=== PATIENT | female | born 1985 | race Caucasian/White ===

== ENCOUNTER 2022-05-11 15:39 | Emergency (ER) | payer SELFPAY ==
[2022-05-11] MEDS ORDERED: ClonazePAM 1 MG Tab PO STA (16:30)
== END 2022-05-11 17:32 | disposition home or self-care (01) ==
LOC: JD.ED 15:39
DX: F41.0 Panic disorder [episodic paroxysmal anxiety] (principal); F17.210 Nicotine dependence, cigarettes, uncomplicated; Z88.0 Allergy status to penicillin; Z88.1 Allergy status to other antibiotic agents
CPT/HCPCS: 99283; A9270; 99282

== ENCOUNTER 2022-09-29 10:48 | Emergency (ER) | payer OTHER, MEDICAID ==
[2022-09-29] MEDS ORDERED: Orphenadrine 100 MG Tab.ER PO ONE (11:24)
== END 2022-09-29 13:55 | disposition home or self-care (01) ==
LOC: JD.ED 10:48
DX: S16.1XXA Strain of muscle, fascia and tendon at neck level, initial encounter (principal); Z88.1 Allergy status to other antibiotic agents; Z88.0 Allergy status to penicillin; Z79.899 Other long term (current) drug therapy; Z90.49 Acquired absence of other specified parts of digestive tract; V43.52XA Car driver injured in collision with other type car in traffic accident, initial encounter; Y92.410 Unspecified street and highway as the place of occurrence of the external cause
CPT/HCPCS: 72040; 99283; A9270

== ENCOUNTER 2023-02-04 15:49 | Emergency (ER) | payer MEDICAID | END 2023-02-04 17:30 | disposition home or self-care (01) | LOC: JD.ED 15:49 | DX: S29.9XXA Unspecified injury of thorax, initial encounter (principal); Z88.1 Allergy status to other antibiotic agents; Z91.040 Latex allergy status; Z88.2 Allergy status to sulfonamides; W50.0XXA Accidental hit or strike by another person, initial encounter | CPT/HCPCS: 71046; 71046-26; 99283 ==

== ENCOUNTER 2023-02-11 16:36 | Emergency (ER) | payer MEDICAID ==
[2023-02-11] MEDS ORDERED: Cyclobenzaprine 10 MG Tab PO ONE (17:28)
[2023-02-11] MEDS ORDERED: HYDROmorphone 0.5 MG/0.5 ML Syringe IVPUSH ONE (18:38)
== END 2023-02-11 19:25 | disposition home or self-care (01) ==
LOC: JD.ED 16:36
DX: S29.011A Strain of muscle and tendon of front wall of thorax, initial encounter (principal); Z88.1 Allergy status to other antibiotic agents; Z91.040 Latex allergy status; Z88.0 Allergy status to penicillin; Z88.8 Allergy status to other drugs, medicaments and biological substances; Z86.16 Personal history of COVID-19
CPT/HCPCS: 71101; 96374; 99284; A9270; J1170